=== PATIENT | female | born 1965 | race Caucasian/White ===

== ENCOUNTER 2016-10-07 16:49 | Inpatient (IN) | payer OTHER ==
--- NOTE | 2016-10-07 17:38 | HP ---
Admission [facility] Chief Complaint: I WANT TO GO TO REHAB Allergies/Adverse Reactions: Allergies Allergy/AdvReac Type Severity Reaction Status Date / Time Penicillins Allergy Severe Rash Verified 10/07/16 17:22 shrimp Allergy Severe Hives Verified 10/07/16 17:22 History of Present Illness: 51 YEARS OLD FEMALE WITH LONG HISTORY OF OPIOID DEPENDENCE HAS CONSTIPATION DEPRESSION AND LEFT SIGMOID COLOSTOMY X 2 YEARS, SELF MANAGED BAG CHANGING DAILY , IS ADMITTED TO REHAB Exam Limitations: No Limitations - Ebola screening Have you traveled outside of the country in the last 21 days: No Have you had contact with anyone from an Ebola affected area: No Have you been sick,other than usual withdrawal symptoms: No Do you have a fever: No - Review of Systems Constitutional: Weight Stable EENT: reports: No Symptoms Reported Respiratory: reports: No Symptoms reported Cardiac: reports: No Symptoms Reported GI: reports: Constipated : reports: No Symptoms Reported Musculoskeletal: reports: Back Pain, Joint Pain (LEGS) Integumentary: reports: Change in Color (BOTH FORE ARMS IV OPIOID) Neuro: reports: No Symptoms reported Endocrine: reports: No Symptoms Reported Hematology: reports: No Symptoms Reported Psychiatric: reports: Judgement Intact, Orientated x3, Depressed Other Systems: Reviewed and Negative Patient History - Patient Medical History Hx Anemia: No Hx Asthma: No Hx Chronic Obstructive Pulmonary Disease (COPD): No Hx Cancer: No Hx Cardiac Disorders: No Hx Congestive Heart Failure: No Hx Hypertension: No Hx Hypercholesterolemia: No Hx Pacemaker: No HX Cerebrovascular Accident: No Hx Seizures: No Hx Dementia: No Hx Diabetes: No Hx Gastrointestinal Disorders: No Hx Liver Disease: No Hx Genitourinary Disorders: No Hx Sexually Transmitted Disorders: No Hx Renal Disease (ESRD): No Hx Thyroid Disease: No Hx Human Immunodeficiency Virus (HIV): No Hx Hepatitis C: Yes Hx Depression: Yes Hx Suicide Attempt: No Hx Bipolar Disorder: No Hx Schizophrenia: No - Patient Surgical History Past Surgical History: Yes Hx Neurologic Surgery: No Hx Cataract Extraction: No Hx Cardiac Surgery: No Hx Lung Surgery: No Hx Breast Surgery: No Hx Breast Biopsy: No Hx Abdominal Surgery: Yes (16 PROCEDURE 2014 LAST SURGERY) Hx Appendectomy: No Hx Cholecystectomy: No Hx Genitourinary Surgery: No Hx Section: Yes (1993) Anesthesia Reaction: No - PPD History Previous Implant?: Yes Documented Results: Negative w/o proof Implanted On Prior [facility] Admission?: No PPD to be Administered?: Yes - Reproductive History Patient is a Female of Child Bearing Age (11 -55 yrs old): Yes Last Menstrual Period: 12/08/15 Patient : No - Smoking Cessation Smoking history: Current every day smoker Have you smoked in the past 12 months: Yes Aproximately how many cigarettes per day: 5 Cigars Per Day: 0 Hx Chewing Tobacco Use: No Initiated information on smoking cessation: Yes 'Breaking Loose' booklet given: 10/07/16 - Substance & Tx. History Hx Alcohol Use: No Hx Substance Use: Yes Substance Use Type: Heroin Hx Substance Use Treatment: Yes - Substances Abused Heroin Route: Injection Frequency: Daily Amount used: 40$ Age of first use: 19 Date of Last Use: 09/30/16 Family Disease History - Family Disease History Family Disease History: CA: Father (), Mother (), Other: Sister (HYPERTHYROID) Admission Physical Exam S - Physical General Appearance: Yes: No Apparent Distress, Appropriately Dressed, Obese HEENTM: Yes: Normal ENT Inspection, Normocephalic Respiratory: Yes: Chest Non-Tender, Lungs Clear, Normal Breath Sounds, No Respiratory Distress, No Accessory Muscle Use Neck: Yes: Supple, Trachea in good position Breast: Yes: Breasts Symetrical Cardiology: Yes: Regular Rhythm, S1, S2, Tachycardia Abdominal: Yes: Non Tender, Soft Genitourinary: Yes: Within Normal Limits Back: Yes: Normal Inspection Musculoskeletal: Yes: full range of Motion, Gait Steady, Back pain Extremities: Yes: Normal Range of Motion, Non-Tender, Other (ARMS IV OPIOID) Neurological: Yes: Fully Oriented, Alert, Motor Strength 5/5, Normal Response, Depressed Affect Integumentary: Yes: Warm, Track Thompson Lymphatic: Yes: Within Normal Limits - Diagnostic (1) Methadone maintenance therapy patient Current Visit: Yes Status: Chronic Comment: 45 MG VERIFICATION PENDING (2) Hepatitis C antibody test positive Current Visit: Yes Status: Chronic (3) Constipation Current Visit: Yes Status: Chronic Qualifiers: Constipation type: chronic idiopathic constipation Qualified Code(s) : K59.04 - Chronic idiopathic constipation (4) Depression (emotion) Current Visit: Yes Status: Suspected Qualifiers: Depression Type: dysthymia Qualified Code(s): F34.1 - Dysthymic disorder (5) Colostomy care Current Visit: Yes Status: Chronic Comment: LEFT SIGMOID COLOSTOMY X 2 YEARS SELF MENAGEMED Cleared for Admission [facility] - Detox or Rehab [facility] Level of Care: Observation Bed Detox Regimen/Protocol: Not Applicable Claeared for Rehab Admission: Yes
[2016-10-07] MEDS ORDERED: NICOTINE POLACRILEX 2 MG GUM BC PRN (17:52)
[2016-10-07] MEDS ORDERED: LOPERAMIDE HCL 2 MG CAPSULE PO PRN (17:52)
[2016-10-07] MEDS ORDERED: MENTHOL/PHENOL 1 EACH UD MM PRN (17:52)
[2016-10-07] MEDS ORDERED: guaiFENesin/D-METHORPHAN HB 10 ML UNIT-DOSE CUPS PO PRN (17:52)
[2016-10-07] MEDS ORDERED: MAGNESIUM HYDROX 2400MG/30ML ORAL SUSPENSION 30 ML CUP PO PRN (17:52)
[2016-10-07] MEDS ORDERED: MAG HYDROX/AL HYDROX/SIMETH 30 ML UNIT-DOSE CUP PO PRN (17:52)
[2016-10-07] MEDS ORDERED: P-EPHED 60MG/TRIPROLIDI 2.5MG TABLET PO PRN (17:52)
[2016-10-07] MEDS ORDERED: MAGNESIUM CITRATE 300 ML BOTTLE PO PRN (17:52)
[2016-10-07] MEDS ORDERED: TUBERCULIN PPD 5 TU/0.1ML VIAL ID ONE (19:14)
[2016-10-07] MEDS: IBUPROFEN 400 MG TABLET (FP) PO PRN (22:17)
[2016-10-07] MEDS: THIAMINE HCL 100 MG TABLET (FP) PO SCH (22:17)
[2016-10-07] MEDS: diphenhydrAMINE HCL 50 MG CAPSULE PO PRN (22:17)
[2016-10-07] MEDS: DOCUSATE SODIUM 100 MG CAPSULE (FP) PO SCH (22:20)
[2016-10-07] MEDS: SENNOSIDES 8.6MG TABLET (FP) PO SCH (22:20)
[2016-10-08] MEDS: DOCUSATE SODIUM 100 MG CAPSULE (FP) PO SCH ×3 (06:09→21:20)
[2016-10-08] MEDS ORDERED: METHADONE HCL 40 MG DISPERSABLE TABLET PO SCH (07:00)
[2016-10-08] MEDS ORDERED: METHADONE HCL 40 MG DISPERSABLE TABLET ONE (07:03)
[2016-10-08] MEDS ORDERED: METHADONE HCL 5 MG TABLET ONE (07:03)
[2016-10-08] MEDS: METHADONE 40 MG, METHADONE 5 MG PO SCH (07:05)
[2016-10-08] MEDS: PRENATAL VITAMINS W/ FOLIC ACID TABLET (FP) PO SCH (09:36)
[2016-10-08] MEDS: NICOTINE 14 MG/24 HOURS TOPICAL PATCH TD SCH (09:36)
[2016-10-08 10:03] LABS: MCH 27.1 pg (25.7-33.7); MCHC 32.8 g/dl (32.0-36.0); MEAN CELL VOLUME 82.7 fl (80-96); MEAN PLT VOLUME 10.7 fl (7.5-11.1); PLATELET COUNT 152 K/MM3 (134-434); RDW 15.7 % (11.6-15.6)
[2016-10-08 10:03] LABS: URINE APPEARANCE CLEAR; URINE BILIRUBIN NEGATIVE (NEGATIVE); URINE BLOOD NEGATIVE (NEGATIVE); URINE COLOR LTYELLOW; URINE GLUCOSE (UA) NEGATIVE (NEGATIVE); URINE KETONE NEGATIVE (NEGATIVE); URINE LEUK ESTERASE NEGATIVE (NEGATIVE); URINE NITRITE NEGATIVE (NEGATIVE); URINE PROTEIN NEGATIVE (NEGATIVE); URINE UROBILINOGEN NEGATIVE E.U./dl (0.2-1.0)
[2016-10-08 10:25] LABS: ALBUMIN 3.3 g/dl (3.4-5.0); ALK PHOS 90 U/L (45-117); ANION GAP 10 (8-16); BILIRUBIN,TOTAL 0.3 mg/dL (0.2-1.0); CALCIUM 9.3 mg/dL (8.5-10.1); CO2 28 mmol/L (21-32); COCKROFT - GAULT 0; CREATININE 0.7 mg/dL (0.55-1.02); GLUCOSE,RANDOM 103 mg/dL (74-106); SGOT/AST 16 U/L (15-37); SGPT/ALT 17 U/L (12-78); TOT PROT 7.2 g/dl (6.4-8.2)
--- NOTE | 2016-10-08 16:36 | EKG ---
Test Reason : Blood Pressure : / mmHG Vent. Rate : 084 BPM Atrial Rate : 084 BPM P-R Int : 182 ms QRS Dur : 094 ms QT Int : 394 ms P-R-T Axes : 063 081 061 degrees QTc Int : 465 ms NORMAL SINUS RHYTHM INCOMPLETE RIGHT BUNDLE BRANCH BLOCK BORDERLINE ECG NO PREVIOUS ECGS AVAILABLE Confirmed by LANEY INFANTE MD ([id number]) on 10/08/2016 4:36:03 PM Referred By: Confirmed By:LANEY INFANTE MD
[2016-10-08] MEDS: IBUPROFEN 400 MG TABLET (FP) PO PRN (21:19)
[2016-10-08] MEDS: THIAMINE HCL 100 MG TABLET (FP) PO SCH (21:20)
[2016-10-08] MEDS: QUEtiapine FUMARATE 50 MG TABLET PO SCH (21:20)
[2016-10-08] MEDS: SENNOSIDES 8.6MG TABLET (FP) PO SCH (21:21)
[2016-10-09] MEDS ORDERED: METHADONE HCL 40 MG DISPERSABLE TABLET ONE (05:55)
[2016-10-09] MEDS ORDERED: METHADONE HCL 5 MG TABLET ONE (05:55)
[2016-10-09] MEDS: METHADONE 40 MG, METHADONE 5 MG PO SCH (05:57)
[2016-10-09] MEDS: DOCUSATE SODIUM 100 MG CAPSULE (FP) PO SCH ×3 (05:58→21:19)
--- NOTE | 2016-10-09 09:52 | HP ---
Psychiatrist Admission - Data Date of interview: 10/09/16 Admission source: [facility] Identifying data: This is the first admission to [address] [place] [address] for this 51 yo mother of 23 yo daughter,homeless, supported by family. Medical History: Obesity,H/O Diverticulitis with 15 surgeries 3 yo,Chronic arthritis. Psychiatric History: First contact with psychiatrist was at school age due to behavioral problems.pt was on therapy.She was placed on psychotropic medications in 2014 when she was admitted to [facility] in [facility] due to severe depression.Pt was dx with Bipolar disorder.She was placed on wellbutrin..She reports one more admission in August 2016 to the same hospital.She is under care of psychiatrist at [facility].Current meds:Wellbutrin XL 300 mg po am and Seqouel 50 mg po hs. Physical/Sexual Abuse/Trauma History: denies Vital Signs: Vital Signs - 24 hr 10/09/16 10/09/16 10/09/16 00:30 03:30 06:58 Temperature 97.8 F Pulse Rate 64 Respiratory 18 18 18 Rate Blood Pressure 121/83 Allergies/Adverse Reactions: Allergies Allergy/AdvReac Type Severity Reaction Status Date / Time Penicillins Allergy Severe Rash Verified 10/07/16 17:22 shrimp Allergy Severe Hives Verified 10/07/16 17:22 Date of last physical exam: 10/07/16 Concur with the findings of this exam: Yes - Substance Abuse/Tx History Hx Alcohol Use: No Hx Substance Use: Yes Substance Use Type: Heroin Hx Substance Use Treatment: Yes (reports using heroin IV since 19 yo,$40 daily, MMTP 45 mg) - Admission Criteria Previous failed treatment: Yes Poor recovery environment: Yes Comorbidities: Yes Lacks judgement: Yes Mental Status Exam - Mental Status Exam Alert and Oriented to: Time, Place, Person Cognitive Function: Grossly Intact Patient Appearance: Unkempt Mood: Euthymic Affect: Mood Congruent, Labile Patient Behavior: Cooperative Speech Pattern: Clear Voice Loudness: Normal Thought Process: Goal Oriented Thought Disorder: Not Present Hallucinations: Denies Suicidal Ideation: Denies Homicidal Ideation: Denies Insight/Judgement: Fair Sleep: Fair Appetite: Good Muscle strength/Tone: Normal Psychiatric Findings - Problem List (Stebbins 1, 2,3) (1) Colostomy care Current Visit: Yes Status: Chronic Comment: LEFT SIGMOID COLOSTOMY X 2 YEARS SELF MENAGEMED (2) Hepatitis C antibody test positive Current Visit: Yes Status: Chronic (3) Methadone maintenance therapy patient Current Visit: Yes Status: Chronic Comment: 45 MG VERIFICATION PENDING (4) Bipolar II disorder Current Visit: Yes Status: Chronic - Initial Treatment Plan Initial Treatment Plan: Contine current medications as per plan.will monitor progress.
[2016-10-09] MEDS: PRENATAL VITAMINS W/ FOLIC ACID TABLET (FP) PO SCH (10:09)
[2016-10-09] MEDS: NICOTINE 14 MG/24 HOURS TOPICAL PATCH TD SCH (10:10)
[2016-10-09] MEDS ORDERED: PT OWN MED DRAWER 7, Y5N ONE (13:40)
[2016-10-09] MEDS: SENNOSIDES 8.6MG TABLET (FP) PO SCH (21:19)
[2016-10-09] MEDS: QUEtiapine FUMARATE 50 MG TABLET PO SCH (21:19)
[2016-10-09] MEDS: THIAMINE HCL 100 MG TABLET (FP) PO SCH (21:19)
[2016-10-10] MEDS ORDERED: METHADONE HCL 5 MG TABLET ONE (03:18)
[2016-10-10] MEDS ORDERED: METHADONE HCL 40 MG DISPERSABLE TABLET ONE (03:18)
[2016-10-10] MEDS: DOCUSATE SODIUM 100 MG CAPSULE (FP) PO SCH ×3 (06:17→21:36)
[2016-10-10] MEDS: METHADONE 40 MG, METHADONE 5 MG PO SCH (06:17)
[2016-10-10] MEDS: PRENATAL VITAMINS W/ FOLIC ACID TABLET (FP) PO SCH (10:10)
[2016-10-10] MEDS: NICOTINE 14 MG/24 HOURS TOPICAL PATCH TD SCH (10:10)
[2016-10-10] MEDS ORDERED: PT OWN MED DRAWER 7, Y5N ONE (20:10)
[2016-10-10] MEDS: SENNOSIDES 8.6MG TABLET (FP) PO SCH (21:35)
[2016-10-10] MEDS: THIAMINE HCL 100 MG TABLET (FP) PO SCH (21:36)
[2016-10-10] MEDS: QUEtiapine FUMARATE 50 MG TABLET PO SCH (21:36)
[2016-10-10] MEDS: diphenhydrAMINE HCL 50 MG CAPSULE PO PRN (21:36)
[2016-10-11] MEDS ORDERED: METHADONE HCL 40 MG DISPERSABLE TABLET ONE (03:21)
[2016-10-11] MEDS ORDERED: METHADONE HCL 5 MG TABLET ONE (03:21)
[2016-10-11] MEDS: DOCUSATE SODIUM 100 MG CAPSULE (FP) PO SCH ×3 (06:09→21:20)
[2016-10-11] MEDS: METHADONE 40 MG, METHADONE 5 MG PO SCH (06:09)
[2016-10-11] MEDS ORDERED: PT OWN MED DRAWER 7, Y5N ONE (08:17)
[2016-10-11] MEDS: NICOTINE 14 MG/24 HOURS TOPICAL PATCH TD SCH (09:51)
[2016-10-11] MEDS: PRENATAL VITAMINS W/ FOLIC ACID TABLET (FP) PO SCH (09:52)
[2016-10-11] MEDS: SENNOSIDES 8.6MG TABLET (FP) PO SCH (21:19)
[2016-10-11] MEDS: THIAMINE HCL 100 MG TABLET (FP) PO SCH (21:20)
[2016-10-11] MEDS: diphenhydrAMINE HCL 50 MG CAPSULE PO PRN (21:20)
[2016-10-11] MEDS: QUEtiapine FUMARATE 50 MG TABLET PO SCH (21:20)
[2016-10-12] MEDS ORDERED: METHADONE HCL 5 MG TABLET ONE (03:21)
[2016-10-12] MEDS ORDERED: METHADONE HCL 40 MG DISPERSABLE TABLET ONE (03:21)
[2016-10-12] MEDS: DOCUSATE SODIUM 100 MG CAPSULE (FP) PO SCH ×3 (06:15→21:22)
[2016-10-12] MEDS: METHADONE 40 MG, METHADONE 5 MG PO SCH (06:16)
[2016-10-12] MEDS: NICOTINE 14 MG/24 HOURS TOPICAL PATCH TD SCH (10:27)
[2016-10-12] MEDS: PRENATAL VITAMINS W/ FOLIC ACID TABLET (FP) PO SCH (10:27)
[2016-10-12] MEDS: IBUPROFEN 400 MG TABLET (FP) PO PRN ×2 (10:30→21:23)
[2016-10-12] MEDS ORDERED: PT OWN MED DRAWER 7, Y5N ONE (13:39)
[2016-10-12] MEDS: THIAMINE HCL 100 MG TABLET (FP) PO SCH (21:21)
[2016-10-12] MEDS: QUEtiapine FUMARATE 50 MG TABLET PO SCH (21:22)
[2016-10-12] MEDS: diphenhydrAMINE HCL 50 MG CAPSULE PO PRN (21:22)
[2016-10-12] MEDS ORDERED: SENNOSIDES 8.6MG TABLET (FP) PO SCH (22:08)
[2016-10-12] MEDS: SENNOSIDES 8.6MG TABLET (FP) PO SCH (22:58)
[2016-10-13] MEDS ORDERED: METHADONE HCL 5 MG TABLET ONE (05:51)
[2016-10-13] MEDS ORDERED: METHADONE HCL 40 MG DISPERSABLE TABLET ONE (05:52)
[2016-10-13] MEDS: DOCUSATE SODIUM 100 MG CAPSULE (FP) PO SCH ×3 (06:08→21:19)
[2016-10-13] MEDS: METHADONE 40 MG, METHADONE 5 MG PO SCH (06:08)
[2016-10-13] MEDS: NICOTINE 14 MG/24 HOURS TOPICAL PATCH TD SCH (10:14)
[2016-10-13] MEDS: PRENATAL VITAMINS W/ FOLIC ACID TABLET (FP) PO SCH (10:14)
[2016-10-13] MEDS: THIAMINE HCL 100 MG TABLET (FP) PO SCH (21:19)
[2016-10-13] MEDS: QUEtiapine FUMARATE 50 MG TABLET PO SCH (21:19)
[2016-10-13] MEDS: SENNOSIDES 8.6MG TABLET (FP) PO SCH (21:19)
[2016-10-13] MEDS: IBUPROFEN 400 MG TABLET (FP) PO PRN (21:20)
[2016-10-14] MEDS ORDERED: PT OWN MED DRAWER 7, Y5N ONE (03:19)
[2016-10-14] MEDS ORDERED: METHADONE HCL 5 MG TABLET ONE (03:19)
[2016-10-14] MEDS ORDERED: METHADONE HCL 40 MG DISPERSABLE TABLET ONE (03:19)
[2016-10-14] MEDS: DOCUSATE SODIUM 100 MG CAPSULE (FP) PO SCH ×3 (06:11→21:24)
[2016-10-14] MEDS: METHADONE 40 MG, METHADONE 5 MG PO SCH (06:11)
[2016-10-14] MEDS: PRENATAL VITAMINS W/ FOLIC ACID TABLET (FP) PO SCH (09:46)
[2016-10-14] MEDS: NICOTINE 14 MG/24 HOURS TOPICAL PATCH TD SCH (09:46)
[2016-10-14] MEDS: IBUPROFEN 400 MG TABLET (FP) PO PRN (09:47)
[2016-10-14] MEDS: SENNOSIDES 8.6MG TABLET (FP) PO SCH (21:24)
[2016-10-14] MEDS: diphenhydrAMINE HCL 50 MG CAPSULE PO PRN (21:24)
[2016-10-14] MEDS: THIAMINE HCL 100 MG TABLET (FP) PO SCH (21:24)
[2016-10-14] MEDS: QUEtiapine FUMARATE 50 MG TABLET PO SCH (21:24)
[2016-10-15] MEDS ORDERED: METHADONE HCL 40 MG DISPERSABLE TABLET ONE (03:15)
[2016-10-15] MEDS ORDERED: METHADONE HCL 5 MG TABLET ONE (03:15)
[2016-10-15] MEDS ORDERED: PT OWN MED DRAWER 7, Y5N ONE (03:16)
[2016-10-15] MEDS: DOCUSATE SODIUM 100 MG CAPSULE (FP) PO SCH ×3 (06:12→21:14)
[2016-10-15] MEDS: METHADONE 40 MG, METHADONE 5 MG PO SCH (06:13)
[2016-10-15] MEDS: NICOTINE 14 MG/24 HOURS TOPICAL PATCH TD SCH (09:36)
[2016-10-15] MEDS: PRENATAL VITAMINS W/ FOLIC ACID TABLET (FP) PO SCH (09:36)
[2016-10-15] MEDS: THIAMINE HCL 100 MG TABLET (FP) PO SCH (21:13)
[2016-10-15] MEDS: diphenhydrAMINE HCL 50 MG CAPSULE PO PRN (21:13)
[2016-10-15] MEDS: LACTULOSE 20 GM/30 ML UDC (FOR ORAL USE ONLY) PO SCH (21:13)
[2016-10-15] MEDS: IBUPROFEN 400 MG TABLET (FP) PO PRN (21:14)
[2016-10-15] MEDS: QUEtiapine FUMARATE 50 MG TABLET PO SCH (21:14)
[2016-10-15] MEDS: SENNOSIDES 8.6MG TABLET (FP) PO SCH (21:14)
[2016-10-16] MEDS ORDERED: METHADONE HCL 5 MG TABLET ONE (03:22)
[2016-10-16] MEDS ORDERED: METHADONE HCL 40 MG DISPERSABLE TABLET ONE (03:22)
[2016-10-16] MEDS ORDERED: PT OWN MED DRAWER 7, Y5N ONE (03:23)
[2016-10-16] MEDS: METHADONE 40 MG, METHADONE 5 MG PO SCH (06:11)
[2016-10-16] MEDS: DOCUSATE SODIUM 100 MG CAPSULE (FP) PO SCH ×3 (06:12→21:26)
[2016-10-16] MEDS: NICOTINE 14 MG/24 HOURS TOPICAL PATCH TD SCH (09:59)
[2016-10-16] MEDS: PRENATAL VITAMINS W/ FOLIC ACID TABLET (FP) PO SCH (10:01)
[2016-10-16] MEDS: LACTULOSE 20 GM/30 ML UDC (FOR ORAL USE ONLY) PO SCH (10:01)
[2016-10-16] MEDS: IBUPROFEN 400 MG TABLET (FP) PO PRN ×2 (10:01→20:03)
[2016-10-16] MEDS: SENNOSIDES 8.6MG TABLET (FP) PO SCH (21:26)
[2016-10-16] MEDS: QUEtiapine FUMARATE 50 MG TABLET PO SCH (21:26)
[2016-10-16] MEDS: THIAMINE HCL 100 MG TABLET (FP) PO SCH (21:26)
[2016-10-16] MEDS: diphenhydrAMINE HCL 50 MG CAPSULE PO PRN (21:27)
[2016-10-17] MEDS ORDERED: METHADONE HCL 40 MG DISPERSABLE TABLET ONE (05:42)
[2016-10-17] MEDS ORDERED: METHADONE HCL 5 MG TABLET ONE (05:42)
[2016-10-17] MEDS: METHADONE 40 MG, METHADONE 5 MG PO SCH (06:24)
[2016-10-17] MEDS: DOCUSATE SODIUM 100 MG CAPSULE (FP) PO SCH ×3 (06:24→21:21)
[2016-10-17] MEDS: LACTULOSE 20 GM/30 ML UDC (FOR ORAL USE ONLY) PO SCH ×2 (06:24→18:13)
[2016-10-17] MEDS: PRENATAL VITAMINS W/ FOLIC ACID TABLET (FP) PO SCH (09:31)
[2016-10-17] MEDS: IBUPROFEN 400 MG TABLET (FP) PO PRN (09:33)
[2016-10-17] MEDS: NICOTINE 14 MG/24 HOURS TOPICAL PATCH TD SCH (09:33)
[2016-10-17] MEDS: QUEtiapine FUMARATE 50 MG TABLET PO SCH (21:21)
[2016-10-17] MEDS: THIAMINE HCL 100 MG TABLET (FP) PO SCH (21:21)
[2016-10-17] MEDS: SENNOSIDES 8.6MG TABLET (FP) PO SCH (21:21)
[2016-10-17] MEDS: diphenhydrAMINE HCL 50 MG CAPSULE PO PRN (21:21)
[2016-10-18] MEDS ORDERED: METHADONE HCL 40 MG DISPERSABLE TABLET ONE (05:32)
[2016-10-18] MEDS ORDERED: METHADONE HCL 5 MG TABLET ONE (05:32)
[2016-10-18] MEDS: METHADONE 40 MG, METHADONE 5 MG PO SCH (05:59)
[2016-10-18] MEDS: DOCUSATE SODIUM 100 MG CAPSULE (FP) PO SCH ×3 (05:59→21:17)
[2016-10-18] MEDS: LACTULOSE 20 GM/30 ML UDC (FOR ORAL USE ONLY) PO SCH ×2 (06:00→18:14)
[2016-10-18] MEDS: PRENATAL VITAMINS W/ FOLIC ACID TABLET (FP) PO SCH (09:53)
[2016-10-18] MEDS: NICOTINE 14 MG/24 HOURS TOPICAL PATCH TD SCH (09:53)
[2016-10-18] MEDS: QUEtiapine FUMARATE 50 MG TABLET PO SCH (21:17)
[2016-10-18] MEDS: THIAMINE HCL 100 MG TABLET (FP) PO SCH (21:18)
[2016-10-18] MEDS: SENNOSIDES 8.6MG TABLET (FP) PO SCH (21:18)
[2016-10-18] MEDS: ACETAMINOPHEN 325 MG TABLET (FP) PO PRN (21:19)
[2016-10-19] MEDS ORDERED: METHADONE HCL 5 MG TABLET ONE (05:39)
[2016-10-19] MEDS ORDERED: METHADONE HCL 40 MG DISPERSABLE TABLET ONE (05:40)
[2016-10-19] MEDS: DOCUSATE SODIUM 100 MG CAPSULE (FP) PO SCH ×3 (06:00→21:20)
[2016-10-19] MEDS: METHADONE 40 MG, METHADONE 5 MG PO SCH (06:00)
[2016-10-19] MEDS: LACTULOSE 20 GM/30 ML UDC (FOR ORAL USE ONLY) PO SCH ×2 (06:02→18:46)
[2016-10-19] MEDS: NICOTINE 14 MG/24 HOURS TOPICAL PATCH TD SCH (10:24)
[2016-10-19] MEDS: PRENATAL VITAMINS W/ FOLIC ACID TABLET (FP) PO SCH (10:24)
[2016-10-19] MEDS: THIAMINE HCL 100 MG TABLET (FP) PO SCH (21:20)
[2016-10-19] MEDS: diphenhydrAMINE HCL 50 MG CAPSULE PO PRN (21:20)
[2016-10-19] MEDS: QUEtiapine FUMARATE 50 MG TABLET PO SCH (21:22)
[2016-10-19] MEDS: SENNOSIDES 8.6MG TABLET (FP) PO SCH (21:22)
[2016-10-20] MEDS ORDERED: METHADONE HCL 5 MG TABLET ONE (06:03)
[2016-10-20] MEDS ORDERED: METHADONE HCL 40 MG DISPERSABLE TABLET ONE (06:04)
[2016-10-20] MEDS: METHADONE 40 MG, METHADONE 5 MG PO SCH (06:08)
[2016-10-20] MEDS: DOCUSATE SODIUM 100 MG CAPSULE (FP) PO SCH ×3 (06:08→21:24)
[2016-10-20] MEDS: LACTULOSE 20 GM/30 ML UDC (FOR ORAL USE ONLY) PO SCH ×2 (06:09→21:25)
[2016-10-20] MEDS: NICOTINE 14 MG/24 HOURS TOPICAL PATCH TD SCH (10:22)
[2016-10-20] MEDS: PRENATAL VITAMINS W/ FOLIC ACID TABLET (FP) PO SCH (10:22)
[2016-10-20] MEDS: ACETAMINOPHEN 325 MG TABLET (FP) PO PRN (18:23)
[2016-10-20] MEDS: THIAMINE HCL 100 MG TABLET (FP) PO SCH (21:24)
[2016-10-20] MEDS: SENNOSIDES 8.6MG TABLET (FP) PO SCH (21:24)
[2016-10-20] MEDS: QUEtiapine FUMARATE 50 MG TABLET PO SCH (21:24)
[2016-10-20] MEDS: diphenhydrAMINE HCL 50 MG CAPSULE PO PRN (21:25)
[2016-10-21] MEDS ORDERED: METHADONE HCL 40 MG DISPERSABLE TABLET ONE (03:09)
[2016-10-21] MEDS ORDERED: METHADONE HCL 5 MG TABLET ONE (03:09)
[2016-10-21] MEDS: METHADONE 40 MG, METHADONE 5 MG PO SCH (06:04)
[2016-10-21] MEDS: DOCUSATE SODIUM 100 MG CAPSULE (FP) PO SCH ×3 (06:04→21:25)
[2016-10-21] MEDS: PRENATAL VITAMINS W/ FOLIC ACID TABLET (FP) PO SCH (10:14)
[2016-10-21] MEDS: NICOTINE 14 MG/24 HOURS TOPICAL PATCH TD SCH (10:15)
[2016-10-21] MEDS: IBUPROFEN 400 MG TABLET (FP) PO PRN ×2 (10:16→21:26)
[2016-10-21] MEDS: LACTULOSE 20 GM/30 ML UDC (FOR ORAL USE ONLY) PO SCH (21:24)
[2016-10-21] MEDS: QUEtiapine FUMARATE 50 MG TABLET PO SCH (21:25)
[2016-10-21] MEDS: SENNOSIDES 8.6MG TABLET (FP) PO SCH (21:25)
[2016-10-21] MEDS: diphenhydrAMINE HCL 50 MG CAPSULE PO PRN (21:25)
[2016-10-21] MEDS: THIAMINE HCL 100 MG TABLET (FP) PO SCH (21:25)
[2016-10-22] MEDS ORDERED: METHADONE HCL 5 MG TABLET ONE (03:10)
[2016-10-22] MEDS ORDERED: METHADONE HCL 40 MG DISPERSABLE TABLET ONE (03:10)
[2016-10-22] MEDS: METHADONE 40 MG, METHADONE 5 MG PO SCH (06:10)
[2016-10-22] MEDS: DOCUSATE SODIUM 100 MG CAPSULE (FP) PO SCH ×2 (06:11→13:20)
[2016-10-22 07:03] VITALS: BP 107/71; PULSE 73; TEMP 98.1
[2016-10-22] MEDS: NICOTINE 14 MG/24 HOURS TOPICAL PATCH TD SCH (10:12)
[2016-10-22] MEDS: PRENATAL VITAMINS W/ FOLIC ACID TABLET (FP) PO SCH (10:12)
--- NOTE | 2016-10-22 15:07 | PN ---
Psychiatric Progress Note Vital Signs: Vital Signs Period Temp Pulse Resp BP Sys/Pierce Pulse Ox Last 24 Hr 98.1 F 73 18-18 107/71 Date of Session: 10/22/16 Chief Complaint:: discharge visit HPI: Patient has addressed opioid dependence comorbid Bipolar II disorder Current Medications: Active Medications Generic Name Dose Route Start Last Admin Trade Name Freq PRN Reason Stop Dose Admin Acetaminophen 650 mg 10/07/16 17:52 10/20/16 18:23 Tylenol - PO 650 mg Q4H PRN Administration PAIN Al Hydroxide/Mg Hydroxide 30 ml 10/07/16 17:52 Mylanta Oral Suspension - PO Q6H PRN DYSPEPSIA Bupropion HCl 300 mg 10/08/16 10:00 10/22/16 10:12 Wellbutrin Xl - PO 300 mg DAILY ANH Administration Diphenhydramine HCl 50 mg 10/07/16 17:52 10/21/16 21:25 Benadryl - PO 50 mg HSMR1 PRN Administration INSOMNIA Docusate Sodium 100 mg 10/07/16 22:00 10/22/16 13:20 Colace - PO 100 mg TID ANH Administration Eucalyptus/Menthol/Phenol/Sorbitol 1 each 10/07/16 17:52 Cepastat Lozenge - MM Q4H PRN SORE THROAT Guaifenesin 10 ml 10/07/16 17:52 Robitussin Dm - PO Q6H PRN COUGH Ibuprofen 400 mg 10/07/16 17:52 10/21/16 21:26 Motrin - PO 400 mg Q6H PRN Administration SEVERE PAIN Lactulose 40 gm 10/20/16 22:00 10/21/16 21:24 Cephulac (Oral Use) PO 40 gm HS ANH Administration Loperamide HCl 4 mg 10/07/16 17:52 Imodium - PO Q6H PRN DIARRHEA Magnesium Citrate 300 ml 10/07/16 17:52 Citroma - PO Q48H PRN CONSTIPATION Magnesium Hydroxide 30 ml 10/07/16 17:52 Milk Of Magnesia - PO DAILY PRN CONSTIPATION Methadone HCl 40 mg/ Methadone 45 mg 10/20/16 06:00 10/22/16 06:10 HCl 5 mg PO 45 mg DAILY@0600 ANH Administration Nicotine 14 mg 10/08/16 10:00 10/22/16 10:12 Nicoderm Patch - TD Not Given DAILY ANH Nicotine Polacrilex 2 mg 10/07/16 17:52 Nicorette Gum - BC Q2H PRN NICOTINE REPLACEMENT RX Multivit/Folic Acid/Iron 1 tab 10/08/16 10:00 10/22/16 10:12 Vitamins ([facility]) - PO 1 tab DAILY ANH Administration Pseudoephedrine/Triprolidine 1 combo 10/07/16 17:52 Actifed - PO TID PRN NASAL CONGESTION Quetiapine Fumarate 50 mg 10/08/16 22:00 10/21/16 21:25 Seroquel - PO 50 mg HS ANH Administration Senna 1 tab 10/12/16 22:08 10/21/16 21:25 Senna - PO 1 tab HS ANH Administration Thiamine HCl 100 mg 10/07/16 22:00 10/21/16 21:25 Vitamin B1 - PO 100 mg HS ANH Administration Current Side Effect: No Lab tests ordered: No Lab tests reviewed: Yes Provider note:: Patient has completed to day this treatment and met her goals, will continue to address her issues at the next level of care. Patient focused on mportnace of continue her abstinence, utilize all supports to prevent relapses. Seroquel and Wellbutrin well tolerated,scripts provided, patient is stable for discharge. Total face to face time:: 30 Mental Status Exam - Mental Status Exam Alert and Oriented to: Time, Place, Person Cognitive Function: Good Patient Appearance: Well Groomed Mood: Hopeful Affect: Appropriate, Mood Congruent Patient Behavior: Appropriate, Cooperative Speech Pattern: Clear, Appropriate Voice Loudness: Normal Thought Process: Goal Oriented Thought Disorder: Not Present Hallucinations: Denies Suicidal Ideation: Denies Homicidal Ideation: Denies Insight/Judgement: Fair Sleep: Fair Appetite: Fair Muscle strength/Tone: Normal Gait/Station: Normal Psychiatric Treatment Plan - Problem List (1) Bipolar II disorder Current Visit: Yes (2) Opioid dependence Current Visit: Yes
== END 2016-10-22 15:00 | disposition home or self-care (01) | DRG 772 ==
LOC: YASAS 16:49 → Y3E 17:28
PROVIDERS: ADMIT Psychiatry & Neurology Psychiatry; ATTEND Psychiatry & Neurology Psychiatry
PROC: HZ42ZZZ Group Counseling for Substance Abuse Treatment, Cognitive-Behavioral (ICD-10-PCS; principal; 2016-10-07)
DX: F11.20 Opioid dependence, uncomplicated (principal); F31.81 Bipolar II disorder; F34.1 Dysthymic disorder; E66.9 Obesity, unspecified; Z68.41 Body mass index [BMI] 40.0-44.9, adult; B18.2 Chronic viral hepatitis C; K59.01 Slow transit constipation; Z93.3 Colostomy status
CPT/HCPCS: 36415; 80053; 81003; 85027; 86593; 93005; 93010